=== PATIENT | male | born 1990 | race African-American/Black ===

== ENCOUNTER 2016-05-04 17:25 | Emergency (ER) | payer OTHER ==
[2016-05-04 17:29] VITALS: BP 139/63; BMI 29.9
--- NOTE | 2016-05-04 17:56 | PDOC ---
History of Present Illness - General Chief Complaint: Cold Symptoms Stated Complaint: COUGH/FEVER/CHEST TIGHTNESS Time Seen by Provider: 05/04/16 17:47 History Source: Patient Exam Limitations: No Limitations - History of Present Illness Initial Comments: CHIEF COMPLAINT: 25 y/o febrile tachycardic male with no significant PMH c/o flu like symptoms. HISTORY OF PRESENT ILLNESS: The patient states very suddenly last night he began feeling feverish, with body aches, dry cough and runny nose. He states today his chest hurts when he coughs. He denies CARMICHAEL, neck pain, n/v/d, sore throat, earache, SOB, abd pain, back pain. He has taken cough medicine for his symptoms. Vital signs on arrival are notable for pulse of 115 secondary to temp of 100.4. REVIEW OF SYSTEMS: GENERAL/CONSTITUTIONAL: + fever/chills. No weakness. No weight change. +body aches. HEAD, EYES, EARS, NOSE AND THROAT: No change in vision. No ear pain or discharge. No sore throat. +runny nose CARDIOVASCULAR: +chest pain. No shortness of breath. RESPIRATORY: +dry cough. No wheezing, or hemoptysis. GASTROINTESTINAL: No abd pain, nausea, vomiting, diarrhea. GENITOURINARY: No dysuria, frequency, or change in urination. MUSCULOSKELETAL: No joint or muscle swelling or pain. No neck or back pain. SKIN: No rash or easy bruising. NEUROLOGIC: No headache, vertigo, loss of consciousness, or loss of sensation. PHYSICAL EXAM: GENERAL: The patient is awake, alert, and fully oriented, in no acute distress. He is well appearing and ambulatory. HEAD: Normal with no signs of trauma. ENT: Pupils equal, round and reactive to light, extraocular movements intact, sclera anicteric, conjunctiva clear. Neck supple. LUNGS: Clear to auscultation bilaterally. Normal excursion. No respiratory distress or use of accessory muscles. CHEST WALL: Reproducible chest pain with palpation of anterior chest wall. CV: rapid rate regular rhythm, S1/S2, no MRG. Cap refill < 2 sec. ABDOMEN: Soft, non-distended, non-tender even to deep palpation, no hepatomegaly or splenomegaly, no masses. EXTREMITIES: Normal range of motion, no edema. NEUROLOGICAL: Normal speech, normal gait. CN II-XII grossly intact. PSYCH: Normal mood, normal affect. SKIN: Warm, dry, normal turgor, no rashes or lesions noted. Past History - Past Medical History Allergies/Adverse Reactions: Allergies Allergy/AdvReac Type Severity Reaction Status Date / Time No Known Allergies Allergy Verified 05/04/16 17:29 Other medical history: NONE - Psycho/Social/Smoking Cessation Hx Suicidal Ideation: No Smoking History: Current every day smoker Number of Cigarettes Smoked Daily: 6 Information on smoking cessation initiated: No Hx Alcohol Use: No Drug/Substance Use Hx: No Substance Use Type: None *Physical Exam - Vital Signs Last Vital Signs Temp Pulse Resp BP Pulse Ox 100.4 F H 115 H 20 139/63 95 05/04/16 17:26 05/04/16 17:26 05/04/16 17:26 05/04/16 17:26 05/04/16 17:26 Medical Decision Making - Medical Decision Making A/P: 25 y/o febrile male with influenza vs viral URI. Plan is as follows: 1. Influenza 2. PO tylenol 3. IM toradol 4. PO fluids Influenza - negative The patient is no longer febrile or tachycardic. His O2 sat is still 95 % on RA. Ordered Duoneb and CXR After patient had chest xray he eloped from the ER. *DC/Admit/Observation/Transfer Diagnosis at time of Disposition: Viral URI with cough - Discharge Dispostion Disposition: ELOPED Condition at time of disposition: Improved - Patient Instructions Printed Discharge Instructions: DI for Viral Upper Respiratory Infection -- Adult Additional Instructions: Discharge Instructions: -Take 650mg of Tylenol every 4 hours for fever -Take 600mg of Motrin every 6 hours for body aches. -Continue taking cough medicine for cough -Drink plenty of fluids and get plenty of rest -Follow up with your doctor next week -Return to the ER with any worsening or concerning symptoms
[2016-05-04] MEDS ORDERED: ACETAMINOPHEN 325 MG TABLET (FP) PO ONE (17:57)
[2016-05-04] MEDS ORDERED: KETOROLAC TROMETHAMINE 60 MG/2 ML VIAL IM ONE (17:57)
[2016-05-04] MEDS ORDERED: ACETAMINOPHEN 325 MG TABLET (FP) ONE (18:09)
[2016-05-04] MEDS ORDERED: KETOROLAC TROMETHAMINE 60 MG/2 ML VIAL ONE (18:09)
[2016-05-04] MEDS ORDERED: ALBUTEROL SO4 2.5/IPRATROPIUM 0.5 INH SOL 3 ML VIAL.NEB. NEB ONE (19:07)
[2016-05-04 20:30] VITALS: PULSE 90; TEMP 98.7
== END 2016-05-04 20:45 | disposition left against medical advice (07) ==
LOC: JERFT 17:25
DX: J06.9 Acute upper respiratory infection, unspecified (principal); B97.89 Other viral agents as the cause of diseases classified elsewhere
CPT/HCPCS: 71020-TC; 87804; 99281-25

== ENCOUNTER 2016-05-06 13:47 | Emergency (ER) | payer OTHER ==
[2016-05-06 14:10] VITALS: BP 123/71; PULSE 80; TEMP 97.8; BMI 30.7
--- NOTE | 2016-05-06 14:20 | PDOC ---
History of Present Illness - General Chief Complaint: Respiratory Stated Complaint: COUGH Time Seen by Provider: 05/06/16 14:19 History Source: Patient Exam Limitations: No Limitations - History of Present Illness Initial Comments: 05/06/16 14:20 CHIEF COMPLAINT: 25 y/o afebrile male with no significant PMH c/o continued cough. HISTORY OF PRESENT ILLNESS: The patient was seen here 2 days ago and eloped prior to completion of treatment. The patient states very suddenly 3 nights ago he began feeling feverish, with body aches, dry cough and runny nose. All of those symptoms have resolved but he states the cough is still present and he feels "warm" every once in a while. He denies CARMICHAEL, neck pain, n/v/d, sore throat , earache, SOB, abd pain, back pain. He stopped taking cough medicine for his symptoms. Vital signs on arrival are within normal limits. REVIEW OF SYSTEMS: GENERAL/CONSTITUTIONAL: tactile fever. No weakness. No weight change. No body aches HEAD, EYES, EARS, NOSE AND THROAT: No change in vision. No ear pain or discharge. No sore throat. +runny nose CARDIOVASCULAR: No chest pain. No shortness of breath. RESPIRATORY: +dry cough. No wheezing, or hemoptysis. GASTROINTESTINAL: No abd pain, nausea, vomiting, diarrhea. GENITOURINARY: No dysuria, frequency, or change in urination. MUSCULOSKELETAL: No joint or muscle swelling or pain. No neck or back pain. SKIN: No rash or easy bruising. NEUROLOGIC: No headache, vertigo, loss of consciousness, or loss of sensation. PHYSICAL EXAM: GENERAL: The patient is awake, alert, and fully oriented, in no acute distress. He is well appearing and ambulatory. HEAD: Normal with no signs of trauma. ENT: Pupils equal, round and reactive to light, extraocular movements intact, sclera anicteric, conjunctiva clear. Neck supple. LUNGS: Clear to auscultation bilaterally. Normal excursion. No respiratory distress or use of accessory muscles. CHEST WALL: Reproducible chest pain with palpation of anterior chest wall. CV: rapid rate regular rhythm, S1/S2, no MRG. Cap refill < 2 sec. ABDOMEN: Soft, non-distended, non-tender even to deep palpation, no hepatomegaly or splenomegaly, no masses. EXTREMITIES: Normal range of motion, no edema. NEUROLOGICAL: Normal speech, normal gait. CN II-XII grossly intact. PSYCH: Normal mood, normal affect. SKIN: Warm, dry, normal turgor, no rashes or lesions noted. Past History - Past Medical History Allergies/Adverse Reactions: Allergies Allergy/AdvReac Type Severity Reaction Status Date / Time No Known Allergies Allergy Verified 05/06/16 14:04 Other medical history: denies - Immunization History Immunization Up to Date: Yes - Psycho/Social/Smoking Cessation Hx Suicidal Ideation: No Smoking History: Current every day smoker Number of Cigarettes Smoked Daily: 6 Information on smoking cessation initiated: No Hx Alcohol Use: No Drug/Substance Use Hx: No Substance Use Type: None *Physical Exam - Vital Signs Last Vital Signs Temp Pulse Resp BP Pulse Ox 97.8 F 80 20 123/71 100 05/06/16 14:04 05/06/16 14:04 05/06/16 14:04 05/06/16 14:04 05/06/16 14:04 Medical Decision Making - Medical Decision Making A/P: 25 y/o afebrile male mostly at the tail end of a viral URI with cough. He was seen here 2 days ago and eloped prior to completion of treatment. At that time his CXR was negative and his influenza was negative. The patient is c /o continued cough. Physical exam is unremarkable. Suggested the patient take 600mg of motrin every 6 hours for pain/fever, use otc cough medicine for cough, drink plenty of fluids, use cough drops, sit up to sleep and get plenty of rest. Instructed the patient to return to the ER with any worsening or concerning symptoms. The patient verbalizes understanding of all instructions, has no further questions and is awaiting discharge. *DC/Admit/Observation/Transfer Diagnosis at time of Disposition: Viral URI with cough - Discharge Dispostion Disposition: HOME Condition at time of disposition: Good - Patient Instructions Printed Discharge Instructions: DI for Viral Upper Respiratory Infection -- Adult Additional Instructions: Discharge Instructions: -Take over the counter cough medicine for cough -Take Motrin every 6 hours for pain/fever -Use cough drops and gargle with warm salt water -Sit up to sleep -Return to the ER with any worsening or concerning symptoms
== END 2016-05-06 14:30 | disposition home or self-care (01) ==
LOC: JERFT 13:47
DX: J06.9 Acute upper respiratory infection, unspecified (principal); B97.89 Other viral agents as the cause of diseases classified elsewhere
CPT/HCPCS: 99281-25

== ENCOUNTER 2017-04-09 01:06 | Emergency (ER) | payer OTHER ==
[2017-04-09 02:56] VITALS: BP 131/74; PULSE 56; TEMP 97.7; BMI 31.5
--- NOTE | 2017-04-09 04:08 | PDOC ---
History of Present Illness - General Chief Complaint: Back Pain Stated Complaint: BACK/SHOULDER INJURY Time Seen by Provider: 04/09/17 03:28 - History of Present Illness Initial Comments: 04/09/17 04:03 CHIEF COMPLAINT: work injury HISTORY OF PRESENT ILLNESS: 26 yo M with no PMH presents to ED s/p injury at work. 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 Patient states that he did have some pain to his lower back and left shoulder earlier but it has resolved; per his employer protocol he had to come "get checked out." Patient denies any decreased ROM to any extremities and denies any pain now. Patient denies trauma to any other part of his body, denies LOC. PAST MEDICAL HISTORY: Denies past medical history FAMILY HISTORY: Denies SOCIAL HISTORY: Denies tobacco, alcohol, illicit drug use. SURGICAL HISTORY: Denies ALLERGIES: No known drug allergies REVIEW OF SYSTEMS as per HPI PHYSICAL EXAM General Appearance: Well-appearing, appropriately dressed. No apparent distress. HEENT: EOMI, PERRLA. No conjunctival pallor. No photophobia, scleral icterus. Neck: Supple. Trachea midline. No tenderness. Respiratory/Chest: Lungs CTAB. Cardiovascular: RRR. S1, S2. Gastrointestinal/Abdominal: Normal bowel sounds. Abdomen soft, non-distended. No tenderness or rebound tenderness. No organomegaly, pulsatile mass, guarding , hernia, hepatomegaly, splenomegaly. Musculoskeletal/Extremities: Normal inspection. FROM of all extremities, normal capillary refill. Pelvis Stable. No CVA tenderness. No tenderness to extremities, pedal edema, swelling, erythema or deformity. Integumentary: Appropriate color, dry, warm. No cyanosis, erythema, jaundice or rash Neurologic: paint stockman II-XII intact. Fully oriented, alert. Appropriate mood/affect. Motor strength 5/5. No appreciable EOM palsy, facial droop or sensory deficit. Past History - Past Medical History Allergies/Adverse Reactions: Allergies Allergy/AdvReac Type Severity Reaction Status Date / Time No Known Allergies Allergy Verified 04/09/17 02:46 Home Medications: Ambulatory Orders Naproxen [Naprosyn -] 250 mg PO BID PRN #14 tablet 04/09/17 - Immunization History Immunization Up to Date: Yes - Suicide/Smoking/Psychosocial Hx Smoking History: Current every day smoker Number of Cigarettes Smoked Daily: 20 Information on smoking cessation initiated: No Hx Alcohol Use: No Drug/Substance Use Hx: No Substance Use Type: None *Physical Exam - Vital Signs Last Vital Signs Temp Pulse Resp BP Pulse Ox 97.7 F 56 L 14 131/74 100 04/09/17 02:46 04/09/17 02:46 04/09/17 02:46 04/09/17 02:46 04/09/17 02:46 Medical Decision Making - Medical Decision Making 04/09/17 04:10 26 yo M with no PMH presents to ED s/p injury at work. Exam grossly unremarkable. NSAIDs for possible sequela of injury. Advised patient to take medication as prescribed. Advised patient of signs and symptoms for return to ED. Patient verbalized understanding and agrees to plan. *DC/Admit/Observation/Transfer Diagnosis at time of Disposition: Back pain Qualifiers: Back pain location: low back pain Chronicity: acute Back pain laterality: unspecified Sciatica presence: without sciatica Qualified Code(s): M54.5 - Low back pain - Discharge Dispostion Disposition: HOME Condition at time of disposition: Stable Admit: No - Prescriptions Prescriptions: Naproxen [Naprosyn -] 250 mg PO BID PRN #14 tablet PRN Reason: Pain - Referrals Referrals: Mattie Moore MD [Primary Care Provider] - - Patient Instructions Printed Discharge Instructions: DI for Low Back Pain, DI for Shoulder Pain Additional Instructions: Please take medication as prescribed. If your symptoms do not improve in 5-7 days, please follow up with an orthopedics for further evaluation. If you experience any loss of sensation to your extremities, any loss of bowel or bladder function, any swelling or increased pain to your leg, please return to the ER. - Post Discharge Activity Forms/Work/School Notes: Back to Work
--- NOTE | 2017-04-09 04:24 | PDOC ---
*Physical Exam - Vital Signs Last Vital Signs Temp Pulse Resp BP Pulse Ox 97.7 F 56 L 14 131/74 100 04/09/17 02:46 04/09/17 02:46 04/09/17 02:46 04/09/17 02:46 04/09/17 02:46 Medical Decision Making - Medical Decision Making 04/09/17 04:23 agree with care from ROXANE Cerda *DC/Admit/Observation/Transfer Diagnosis at time of Disposition: Back pain Qualifiers: Back pain location: low back pain Chronicity: acute Back pain laterality: unspecified Sciatica presence: without sciatica Qualified Code(s): M54.5 - Low back pain - Discharge Dispostion Disposition: HOME Condition at time of disposition: Stable - Prescriptions Prescriptions: Naproxen [Naprosyn -] 250 mg PO BID PRN #14 tablet PRN Reason: Pain - Referrals Referrals: Mattie Moore MD [Primary Care Provider] - - Patient Instructions Printed Discharge Instructions: DI for Low Back Pain, DI for Shoulder Pain Additional Instructions: Please take medication as prescribed. If your symptoms do not improve in 5-7 days, please follow up with an orthopedics for further evaluation. If you experience any loss of sensation to your extremities, any loss of bowel or bladder function, any swelling or increased pain to your leg, please return to the ER. - Post Discharge Activity Forms/Work/School Notes: Back to Work
== END 2017-04-09 04:44 | disposition home or self-care (01) ==
LOC: JER 01:06
DX: M54.5 Low back pain (principal); W20.8XXA Other cause of strike by thrown, projected or falling object, initial encounter; Y93.89 Activity, other specified; Y92.89 Other specified places as the place of occurrence of the external cause; Y99.0 Civilian activity done for income or pay
CPT/HCPCS: 99281-25

== ENCOUNTER 2017-05-26 17:45 | Emergency (ER) | payer OTHER ==
[2017-05-26 18:18] VITALS: BP 127/78; PULSE 103; TEMP 100.5; BMI 30.7
[2017-05-26] MEDS ORDERED: IBUPROFEN 400 MG TABLET (FP) PO ONE (18:18)
--- NOTE | 2017-05-26 18:19 | PDOC ---
Rapid Medical Evaluation Time Seen by Provider: 05/26/17 18:14 Medical Evaluation: Allergies Allergy/AdvReac Type Severity Reaction Status Date / Time No Known Allergies Allergy Verified 05/26/17 18:14 02 18:14 The patient presents with a chief complaint of: Sore throat, feeling hot for two days. I have performed a brief in-person evaluation of this patient; Pertinent physical exam findings: ambulatory, in no respiratory distress: posterior pharyngeal erythema, cervical LAD b/l. Fever of 100.1 I have ordered the following: rapid strep, motrin The patient will proceed to the ED for further evaluation.
--- NOTE | 2017-05-26 19:14 | PDOC ---
History of Present Illness - General Chief Complaint: Cold Symptoms Stated Complaint: PAIN Time Seen by Provider: 05/26/17 18:14 History Source: Patient Exam Limitations: No Limitations - History of Present Illness Initial Comments: 05/26/17 19:12 27-year-old male with no medical history presents to the emergency department complaining of a sore throat 4 days with subjective fever and chills but denies headache, dizziness, lightheadedness, facial pains, nasal congestion, rhinorrhea, earaches, neck pain/stiffness, back pains, chest pain, shortness of breath, flank pain, abdominal pains. Pt also states he has clogged ears. Timing/Duration: reports: other (x3d) Associated Symptoms: reports: fever/chills (subjective), sore throat Past History - Past Medical History Allergies/Adverse Reactions: Allergies Allergy/AdvReac Type Severity Reaction Status Date / Time No Known Allergies Allergy Verified 05/26/17 18:14 Home Medications: Ambulatory Orders NK [No Known Home Medication] 05/26/17 COPD: No DVT: No - Immunization History Immunization Up to Date: Yes - Suicide/Smoking/Psychosocial Hx Smoking History: Never smoked Have you smoked in the past 12 months: No Number of Cigarettes Smoked Daily: 6 Information on smoking cessation initiated: Yes 'Breaking Loose' booklet given: 05/26/17 Hx Alcohol Use: No Drug/Substance Use Hx: No Substance Use Type: None Review of Systems - Review of Systems Able to Perform ROS?: Yes Comments:: 05/26/17 19:12 CONSTITUTIONAL: +fever/chills Absent: diaphoresis, generalized weakness, malaise, loss of appetite HEENT: +throat pain, +clogged ears Absent: rhinorrhea, nasal congestion, throat swelling, difficulty swallowing, mouth swelling, ear pain, eye pain, visual Changes CARDIOVASCULAR: Absent: chest pain, loss of consciousness, palpitations, irregular heart rate, peripheral edema RESPIRATORY: Absent: cough, shortness of breath, dyspnea with exertion, orthopnea, wheezing, stridor, hemoptysis GASTROINTESTINAL: Absent: abdominal pain, abdominal distension, nausea, vomiting, diarrhea, constipation, melena, hematochezia GENITOURINARY: Absent: dysuria, frequency, urgency, hesitancy, hematuria, flank pain, genital pain MUSCULOSKELETAL: Absent: myalgia, arthralgia, joint swelling SKIN: Absent: rash, itching, pallor Is the patient limited Cook Islander proficient: No *Physical Exam - Vital Signs Last Vital Signs Temp Pulse Resp BP Pulse Ox 100.5 F H 103 H 18 127/78 100 05/26/17 18:14 05/26/17 18:14 05/26/17 18:14 05/26/17 18:14 05/26/17 18:14 - Physical Exam Comments: 05/26/17 19:13 GENERAL: +fever/chills Well developed, well nourished. Awake and alert. No acute distress. HEENT: +Sore throat, +B/L cerumen impaction Normocephalic, atraumatic. PERRLA, EOMI. No conjunctival pallor. Sclera are non- icteric. Moist mucous membranes. Oropharynx is clear. NECK: Supple. Full ROM. No JVD. Carotid pulses 2+ and symmetric, without bruits. No thyromegaly. No lymphadenopathy. CARDIOVASCULAR: Regular rate and rhythm. No murmurs, rubs, or gallops. Distal pulses are 2+ and symmetric. PULMONARY: No evidence of respiratory distress. Lungs clear to auscultation bilaterally. No wheezing, rales or rhonchi. ABDOMINAL: Soft. Non-tender. Non-distended. No rebound or guarding. No organomegaly. Normoactive bowel sounds. SKIN: Warm and dry. Normal capillary refill. No rashes. No jaundice. Procedure: B/L ears cerumen removed with currette B/L TM visualized, wnl canal; neg erythema ED Treatment Course - Medications Given in the ED: ED Medications Discontinued Medications Generic Name Dose Route Start Last Admin Trade Name Humphreyq PRN Reason Stop Dose Admin Ibuprofen 800 mg 05/26/17 18:18 05/26/17 18:31 Motrin - PO 05/26/17 18:19 800 mg ONCE ONE Administration *DC/Admit/Observation/Transfer Diagnosis at time of Disposition: Viral pharyngitis, Impacted cerumen, bilateral - Discharge Dispostion Disposition: HOME Condition at time of disposition: Stable Admit: No - Referrals Referrals: Atul Hall MD [Primary Care Provider] - - Patient Instructions Printed Discharge Instructions: DI for Viral Pharyngitis, DI for Cerumen Impaction Additional Instructions: Follow up with your physician within 48 hours Gargle with salt water Take tylenol or motrin as needed for pain Return to the ER for severe/persistent/worsening symptoms - Post Discharge Activity
== END 2017-05-26 21:36 | disposition home or self-care (01) ==
LOC: JERFT 17:45
PROC: 09C47ZZ Extirpation of Matter from Left External Auditory Canal, Via Natural or Artificial Opening (ICD-10-PCS; principal; 2017-05-26)
PROC: 09C37ZZ Extirpation of Matter from Right External Auditory Canal, Via Natural or Artificial Opening (ICD-10-PCS; 2017-05-26)
DX: J02.9 Acute pharyngitis, unspecified (principal); B97.89 Other viral agents as the cause of diseases classified elsewhere; H61.23 Impacted cerumen, bilateral
CPT/HCPCS: 69210; 87070; 87430; 99281-25

== ENCOUNTER 2018-06-01 20:31 | Emergency (ER) | payer OTHER ==
[2018-06-01] MEDS ORDERED: IBUPROFEN 400 MG TABLET (FP) PO ONE ×2 (20:47→21:27)
--- NOTE | 2018-06-01 20:47 | PDOC ---
Rapid Medical Evaluation Medical Evaluation: Allergies Allergy/AdvReac Type Severity Reaction Status Date / Time No Known Allergies Allergy Verified 05/26/17 18:14 I have performed a brief in-person evaluation of this patient. The patient presents with a chief complaint of: C/O L posterior rib pain worse on raising L arm up that started today while at work; has slight pain on inspiration as well; denies trauma, heavy lifting Pertinent physical exam findings: +reproducible cp I have ordered the following: CXR, Motrin The patient will proceed to the ED for further evaluation. 06/01/18 20:45
[2018-06-01 20:48] VITALS: BP 145/64; PULSE 67; TEMP 98.3; BMI 31.1
--- NOTE | 2018-06-01 21:39 | PDOC ---
History of Present Illness - General Chief Complaint: Chest Pain Stated Complaint: CHEST PAIN Time Seen by Provider: 06/01/18 20:45 - History of Present Illness Initial Comments: 06/01/18 21:36 28-year-old male presented for evaluation of left-sided rib pain. He points to the area of the latissimus dorsi as the area of his discomfort. No systemic symptoms no comorbidities Past History - Past Medical History Allergies/Adverse Reactions: Allergies Allergy/AdvReac Type Severity Reaction Status Date / Time No Known Allergies Allergy Verified 06/01/18 20:46 Home Medications: Ambulatory Orders Cyclobenzaprine HCl [Flexeril 10 mg] 10 mg PO HS PRN #10 tablet 06/01/18 Ibuprofen [Motrin -] 600 mg PO TID #30 tablet 06/01/18 COPD: No DVT: No - Immunization History Immunization Up to Date: Yes - Suicide/Smoking/Psychosocial Hx Smoking History: Current every day smoker Have you smoked in the past 12 months: No Number of Cigarettes Smoked Daily: 6 Information on smoking cessation initiated: No 'Breaking Loose' booklet given: 05/26/17 Hx Alcohol Use: No Drug/Substance Use Hx: No Substance Use Type: None Review of Systems - Review of Systems Musculoskeletal: Yes: Muscle Pain *Physical Exam - Vital Signs Last Vital Signs Temp Pulse Resp BP Pulse Ox 98.3 F 67 18 145/64 100 06/01/18 20:46 06/01/18 20:46 06/01/18 20:46 06/01/18 20:46 06/01/18 20:46 - Physical Exam Comments: 06/01/18 21:37 HEAD: NC/AT EYES: Conjuntiva clear Ears: Canals and TM's normal NOSE: No d/c THROAT: Moist mucous membrances, oral pharanx clear, uvula midline NECK: Supple without adenopathy CARDIAC: S1 S2 LUNGS: CTA Full and Equal breath sounds ABDOMEN: Soft NT ND MS: Full ROM in all joints without edema NEUROLOGIC: No gross sensory or motor deficits, NVID SKIN: Normal color and temperature no lesions or rashes There is no rib tenderness. Tenderness is about the left latissimus dorsi exacerbated with resisted on adduction Moderate Sedation - Procedure Monitoring Vital Signs: Procedure Monitoring Vital Signs Temperature 98.3 F 06/01/18 20:46 Pulse Rate 67 06/01/18 20:46 Respiratory Rate 18 06/01/18 20:46 Blood Pressure 145/64 06/01/18 20:46 O2 Sat by Pulse Oximetry (%) 100 06/01/18 20:46 ED Treatment Course - Medications Given in the ED: ED Medications Discontinued Medications Generic Name Dose Route Start Last Admin Trade Name Freq PRN Reason Stop Dose Admin Ibuprofen 800 mg 06/01/18 20:47 06/01/18 21:28 Motrin - PO 06/01/18 20:48 800 mg ONCE ONE Administration *DC/Admit/Observation/Transfer Diagnosis at time of Disposition: Muscle strain - Discharge Dispostion Disposition: HOME Condition at time of disposition: Stable Decision to Admit order: No - Prescriptions Prescriptions: Cyclobenzaprine HCl [Flexeril 10 mg] 10 mg PO HS PRN #10 tablet PRN Reason: Muscle Spasms Ibuprofen [Motrin -] 600 mg PO TID #30 tablet - Referrals Referrals: Mike Vaughan DO [Staff Physician] - - Patient Instructions Printed Discharge Instructions: Muscle Strain Additional Instructions: Please take the anti-inflammatories as directed its one tablet 3 times a day with food discontinue the medication if it bothers her stomach. The muscle relaxers one tablet at night will make you sleepy. Return to the emergency room should symptoms worsen or go unresolved and follow-up with orthopedic surgery in 1-2 days for further evaluation and treatment options. - Post Discharge Activity Forms/Work/School Notes: Back to Work
== END 2018-06-01 21:39 | disposition home or self-care (01) ==
LOC: JERFT 20:31
DX: S29.012A Strain of muscle and tendon of back wall of thorax, initial encounter (principal); X58.XXXA Exposure to other specified factors, initial encounter; Y93.89 Activity, other specified; Y92.89 Other specified places as the place of occurrence of the external cause; Y99.9 Unspecified external cause status; F17.210 Nicotine dependence, cigarettes, uncomplicated
CPT/HCPCS: 71046-TC-FY; 99281-25

== ENCOUNTER 2018-08-12 18:56 | Emergency (ER) | payer OTHER ==
[2018-08-12 19:01] VITALS: BP 139/67; PULSE 104; TEMP 102.1; BMI 30.7
[2018-08-12] MEDS ORDERED: ACETAMINOPHEN 500 MG TABLET (FP) PO ONE (20:31)
[2018-08-12] MEDS ORDERED: ACETAMINOPHEN 500 MG TABLET (FP) ONE (20:34)
--- NOTE | 2018-08-12 20:36 | PDOC ---
History of Present Illness - General Chief Complaint: Cold Symptoms Stated Complaint: COLD SYMPTOMS HEADACHE Time Seen by Provider: 08/12/18 20:26 - History of Present Illness Initial Comments: 08/12/18 20:33 28-year-old male without comorbidities presents for flulike symptoms and fever 3 days Past History - Past Medical History Allergies/Adverse Reactions: Allergies Allergy/AdvReac Type Severity Reaction Status Date / Time No Known Allergies Allergy Verified 08/12/18 19:01 Home Medications: Ambulatory Orders Acetaminophen [Tylenol -] 1,000 mg PO Q8H #100 tablet 08/12/18 Ibuprofen [Motrin -] 600 mg PO TID #30 tablet 08/12/18 COPD: No DVT: No - Immunization History Immunization Up to Date: Yes - Suicide/Smoking/Psychosocial Hx Smoking History: Never smoked Have you smoked in the past 12 months: No Number of Cigarettes Smoked Daily: 6 'Breaking Loose' booklet given: 05/26/17 Hx Alcohol Use: No Drug/Substance Use Hx: No Substance Use Type: None Review of Systems - Review of Systems Constitutional: Yes: See HPI, Chills, Fever, Malaise, Night Sweats HEENTM: Yes: Nose Congestion Respiratory: Yes: Cough *Physical Exam - Vital Signs Last Vital Signs Temp Pulse Resp BP Pulse Ox 102.1 F H 104 H 18 139/67 97 08/12/18 18:59 08/12/18 18:59 08/12/18 18:59 08/12/18 18:59 08/12/18 18:59 - Physical Exam Comments: 08/12/18 20:33 HEAD: NC/AT EYES: Conjuntiva clear Ears: Canals and TM's normal NOSE: No d/c THROAT: Moist mucous membrances, oral pharanx clear, uvula midline NECK: Supple without adenopathy CARDIAC: S1 S2 LUNGS: CTA Full and Equal breath sounds ABDOMEN: Soft NT ND MS: Full ROM in all joints without edema NEUROLOGIC: No gross sensory or motor deficits, NVID SKIN: Normal color and temperature no lesions or rashes Medical Decision Making - Medical Decision Making 08/12/18 20:33 Discussed use of Tamiflu, patient is out of the window for this treatment. Discussed use of Tylenol and Motrin prescriptions that the pharmacy. Follow-up with internal medicine one to 2 days for further evaluation and treatment options. *DC/Admit/Observation/Transfer Diagnosis at time of Disposition: Viral URI with cough - Discharge Dispostion Disposition: HOME Condition at time of disposition: Stable Decision to Admit order: No - Prescriptions Prescriptions: Acetaminophen [Tylenol -] 1,000 mg PO Q8H #100 tablet Ibuprofen [Motrin -] 600 mg PO TID #30 tablet - Referrals Referrals: Lilli Olsen MD [Staff Physician] - - Patient Instructions Printed Discharge Instructions: DI for Viral Upper Respiratory Infection -- Adult Additional Instructions: Tylenol and Motrin as directed for pain and fever. Return to the emergency room for worsening symptoms. Follow-up with internal medicine in one to 2 days. Only take Tylenol and Motrin do not take any other [id number] cold remedies her medicines. If you do some of them contain Tylenol and will be overdosing on Tylenol. Only take the Tylenol that was prescribed the weight is written. - Post Discharge Activity Forms/Work/School Notes: Back to Work
== END 2018-08-12 20:55 | disposition home or self-care (01) ==
LOC: JERFT 18:56
DX: J06.9 Acute upper respiratory infection, unspecified (principal); B97.89 Other viral agents as the cause of diseases classified elsewhere
CPT/HCPCS: 99281-25

== ENCOUNTER 2020-06-03 22:33 | Emergency (ER) | payer OTHER ==
[2020-06-03 22:49] VITALS: TEMP 98.2; BMI 29.9
[2020-06-03] MEDS ORDERED: ACETAMINOPHEN 1000 MG/100 ML VIAL (NON FORMULARY) IVPB ONE (23:52)
[2020-06-03] MEDS ORDERED: ONDANSETRON 4 MG/2 ML VIAL IVPUSH ONE (23:52)
[2020-06-03] MEDS ORDERED: SODIUM CHLORIDE 0.9% 500 ML INFUS.BAG IV ONE (23:52)
[2020-06-03] MEDS ORDERED: ACETAMINOPHEN INJECTION 100 ML IVPB ONE (23:56)
[2020-06-03] MEDS ORDERED: ONDANSETRON 4 MG/2 ML VIAL ONE (23:57)
[2020-06-04 00:41] LABS: BASO % 0.4 % (0-2.0); EOS % 0.1 % (0-4.5); HEMATOCRIT 48.2 % (35.4-49); HEMOGLOBIN 16.3 GM/dL (11.7-16.9); LYMPH % 10.1 % (8-40); MCH 32.9 pg (25.7-33.7); MCHC 33.8 g/dl (32.0-35.9); MEAN CELL VOLUME 97.4 fl (80-96); MEAN PLT VOLUME 8.1 fl (7.5-11.1); MONO % 13.2 % (3.8-10.2); NEUT % 76.2 % (42.8-82.8); PLATELET COUNT 250 K/MM3 (134-434); RBC 4.95 M/mm3 (4.00-5.60); RDW 13.6 % (11.9-15.9); WHITE BLOOD COUNT 11.7 K/mm3 (4.0-10.0)
[2020-06-04 00:56] LABS: INR 1.05 (0.83-1.09); PROTHROMBIN TIME (PATIENT) 12.7 SEC (9.7-13.0)
[2020-06-04 00:58] LABS: ACTIVATED PTT 30.3 SECONDS (25.2-36.5)
[2020-06-04 01:02] LABS: POTASSIUM 3.7 mmol/L (3.5-5.1)
[2020-06-04 01:04] LABS: ALBUMIN 3.7 g/dl (3.4-5.0); BLOOD UREA NITROGEN 8.1 mg/dL (7-18); CALCIUM 8.8 mg/dL (8.5-10.1)
[2020-06-04 01:09] LABS: BILIRUBIN,TOTAL 2.2 mg/dL (0.2-1); TOT PROT 7.5 g/dl (6.4-8.2)
[2020-06-04] MEDS ORDERED: SODIUM CHLORIDE 0.9% 500 ML INFUS.BAG IV ONE (01:16)
[2020-06-04] MEDS ORDERED: AMOX TR/POT CLAV 875MG/125MG TABLETS (FP) PO ONE (03:16)
[2020-06-04 03:33] VITALS: BP 136/78; PULSE 78
== END 2020-06-04 03:33 | disposition home or self-care (01) ==
LOC: JER 22:33
PROC: 3E0333Z Introduction of Anti-inflammatory into Peripheral Vein, Percutaneous Approach (ICD-10-PCS; principal; 2020-06-03)
PROC: 3E033GC Introduction of Other Therapeutic Substance into Peripheral Vein, Percutaneous Approach (ICD-10-PCS; 2020-06-03)
DX: K52.831 Collagenous colitis (principal)
CPT/HCPCS: 36415; 71046-TC-FY; 74177-TC; 80053; 85025; 85610; 85730; 93005; 93010; 99285-25; J0131; Q9967

== ENCOUNTER 2020-06-09 18:43 | Emergency (ER) | payer OTHER ==
[2020-06-09 18:46] VITALS: BP 130/77; PULSE 88; TEMP 98.1; BMI 29.9
[2020-06-09] MEDS ORDERED: FAMOTIDINE 20 MG/50 ML IVPB 20 MG/50 ML MG IVPB ONE ×2 (19:39→20:02)
[2020-06-09] MEDS ORDERED: LACTATED RINGERS SOLUTION 1,000 ML IV STA (19:39)
[2020-06-09] MEDS ORDERED: MAG HYDROX/AL HYDROX/SIMETH 30 ML UNIT-DOSE CUP PO ONE (19:39)
[2020-06-09] MEDS ORDERED: ACETAMINOPHEN 1000 MG/100 ML VIAL (NON FORMULARY) IVPB ONE (19:40)
[2020-06-09 20:02] LABS: BASO % 0.9 % (0-2.0); HEMATOCRIT 46.5 % (35.4-49); HEMOGLOBIN 15.8 GM/dL (11.7-16.9); LYMPH % 17.4 % (8-40); MCHC 34.1 g/dl (32.0-35.9); MEAN CELL VOLUME 96.8 fl (80-96); MEAN PLT VOLUME 7.7 fl (7.5-11.1); MONO % 13.3 % (3.8-10.2); NEUT % 67.4 % (42.8-82.8); PLATELET COUNT 317 K/MM3 (134-434); RDW 13.3 % (11.9-15.9); WHITE BLOOD COUNT 12.2 K/mm3 (4.0-10.0)
[2020-06-09] MEDS ORDERED: ACETAMINOPHEN INJECTION 100 ML IVPB ONE (20:02)
[2020-06-09] MEDS ORDERED: MAGNESIUM HYDROX 2400MG/30ML ORAL SUSPENSION 30 ML CUP ONE (20:02)
[2020-06-09 20:23] LABS: POTASSIUM 3.8 mmol/L (3.5-5.1)
[2020-06-09 20:25] LABS: CALCIUM 8.8 mg/dL (8.5-10.1)
[2020-06-09 20:26] LABS: ALBUMIN 3.5 g/dl (3.4-5.0); BLOOD UREA NITROGEN 8.5 mg/dL (7-18)
[2020-06-09 20:28] LABS: CREATININE 1.1 mg/dL (0.55-1.3)
[2020-06-09 20:30] LABS: TOT PROT 7.6 g/dl (6.4-8.2)
[2020-06-09 20:36] LABS: BILIRUBIN,TOTAL 0.5 mg/dL (0.2-1)
[2020-06-09] MEDS ORDERED: metroNIDAZOLE 500 MG TABLET PO ONE (20:57)
[2020-06-09] MEDS ORDERED: metroNIDAZOLE 250 MG TABLET ONE (20:59)
== END 2020-06-09 21:08 | disposition home or self-care (01) ==
LOC: JER 18:43
PROC: 3E0333Z Introduction of Anti-inflammatory into Peripheral Vein, Percutaneous Approach (ICD-10-PCS; principal; 2020-06-09)
PROC: 3E033GC Introduction of Other Therapeutic Substance into Peripheral Vein, Percutaneous Approach (ICD-10-PCS; 2020-06-09)
DX: K51.919 Ulcerative colitis, unspecified with unspecified complications (principal)
CPT/HCPCS: 36415; 80053; 83605; 83690; 85025; 99284-25; J0131

== ENCOUNTER 2020-08-10 18:54 | Emergency (ER) | payer OTHER ==
[2020-08-10 19:05] VITALS: TEMP 97.6; BMI 29.9
[2020-08-10] MEDS ORDERED: ONDANSETRON 4 MG/2 ML VIAL IVPUSH ONE (19:31)
[2020-08-10] MEDS ORDERED: ACETAMINOPHEN 1000 MG/100 ML VIAL (NON FORMULARY) IVPB ONE (19:31)
[2020-08-10] MEDS ORDERED: SODIUM CHLORIDE 1,000 ML IV STA (19:31)
[2020-08-10] MEDS ORDERED: ONDANSETRON 4 MG/2 ML VIAL ONE (19:43)
[2020-08-10] MEDS ORDERED: ACETAMINOPHEN INJECTION 100 ML IVPB ONE (19:43)
[2020-08-10 20:18] LABS: BASO % 0.3 % (0-2.0); EOS % 0.3 % (0-4.5); HEMATOCRIT 47.6 % (35.4-49); HEMOGLOBIN 16.2 GM/dL (11.7-16.9); LYMPH % 14.1 % (8-40); MCH 33.1 pg (25.7-33.7); MEAN CELL VOLUME 97.3 fl (80-96); MEAN PLT VOLUME 7.9 fl (7.5-11.1); MONO % 14.3 % (3.8-10.2); PLATELET COUNT 238 K/MM3 (134-434); RBC 4.89 M/mm3 (4.00-5.60); RDW 13.8 % (11.9-15.9)
[2020-08-10 20:27] LABS: EPI CELLS 2 /uL (0-25.1); HYALINE CASTS 1 /uL (0-3.1); PH,URINE 5.5 (5.0-8.0); URINE APPEARANCE CLEAR; URINE BACTERIA 87 /uL (0-1359); URINE BILIRUBIN NEGATIVE (NEGATIVE); URINE COLOR YELLOW; URINE GLUCOSE (UA) NEGATIVE (NEGATIVE); URINE KETONE TRACE (NEGATIVE); URINE LEUK ESTERASE NEGATIVE (NEGATIVE); URINE NITRITE NEGATIVE (NEGATIVE); URINE PROTEIN 1+ (NEGATIVE); URINE RBC 70 /uL (0-23.9); URINE UROBILINOGEN 0.2 mg/dL (0.2-1.0); URINE WBC 3 /uL (0-25.8)
[2020-08-10 20:41] LABS: CALCIUM 8.8 mg/dL (8.5-10.1)
[2020-08-10 20:42] LABS: ALBUMIN 3.8 g/dl (3.4-5.0); BLOOD UREA NITROGEN 8.5 mg/dL (7-18)
[2020-08-10 20:46] LABS: BILIRUBIN,TOTAL 1.2 mg/dL (0.2-1); TOT PROT 7.5 g/dl (6.4-8.2)
[2020-08-10 23:38] VITALS: BP 122/75; PULSE 57
== END 2020-08-10 23:30 | disposition home or self-care (01) ==
LOC: JER 18:54
PROC: 3E033NZ Introduction of Analgesics, Hypnotics, Sedatives into Peripheral Vein, Percutaneous Approach (ICD-10-PCS; principal; 2020-08-10)
PROC: 3E033GC Introduction of Other Therapeutic Substance into Peripheral Vein, Percutaneous Approach (ICD-10-PCS; 2020-08-10)
PROC: 3E0337Z Introduction of Electrolytic and Water Balance Substance into Peripheral Vein, Percutaneous Approach (ICD-10-PCS; 2020-08-10)
DX: K52.9 Noninfective gastroenteritis and colitis, unspecified (principal)
CPT/HCPCS: 36415; 74177-TC; 80053; 81003; 83690; 85025; 99285-25; J0131; Q9967

== ENCOUNTER 2021-01-17 17:14 | Emergency (ER) | payer OTHER ==
[2021-01-17 17:23] VITALS: BP 145/81; PULSE 111; TEMP 98.6; BMI 27.1
[2021-01-17] MEDS ORDERED: ONDANSETRON *ODT* 4 MG TABLET SL ONE (18:07)
[2021-01-17] MEDS ORDERED: ACETAMINOPHEN 325 MG TABLET (FP) PO ONE (18:07)
[2021-01-17] MEDS ORDERED: DOCUSATE NA 100 MG/10 ML UNIT-DOSE CUPS PO ONE (18:07)
[2021-01-17] MEDS ORDERED: ONDANSETRON *ODT* 4 MG TABLET ONE (18:12)
[2021-01-17] MEDS ORDERED: ACETAMINOPHEN 325 MG TABLET (FP) ONE (19:33)
== END 2021-01-17 20:08 | disposition home or self-care (01) ==
LOC: JER 17:14
DX: H61.23 Impacted cerumen, bilateral (principal); R10.84 Generalized abdominal pain
CPT/HCPCS: 99283-25; Q0162

== ENCOUNTER 2021-02-24 08:50 | Emergency (ER) | payer OTHER ==
[2021-02-24 08:54] VITALS: BP 131/83; PULSE 85; TEMP 97.9; BMI 27.8
== END 2021-02-24 09:55 | disposition home or self-care (01) ==
LOC: JER 08:50 → JERFT 08:50
DX: S30.812A Abrasion of penis, initial encounter (principal)
CPT/HCPCS: 36415; 86780; 87491; 87529; 87591; 99283-25

== ENCOUNTER 2022-09-16 18:09 | Emergency (ER) | payer OTHER ==
[2022-09-16 18:19] VITALS: BP 142/79; PULSE 104; RESP 20; TEMP 98.8; BMI 31.2
[2022-09-16] MEDS ORDERED: BACITRACIN ZINC 15 GM TUBE TOPICAL OINTMENT TP ONE (19:51)
[2022-09-16] MEDS ORDERED: BACITRACIN ZINC 15 GM TUBE TOPICAL OINTMENT ONE (19:57)
[2022-09-16] MEDS ORDERED: DIPHTH,PERTUSS(ACELL),TET 0.5 ML DISP.SYRIN IM ONE ×2 (20:54→21:06)
== END 2022-09-16 21:08 | disposition home or self-care (01) ==
LOC: JERFT 18:09 → JER 18:09 → JERFT 21:08
PROC: 3E0234Z Introduction of Serum, Toxoid and Vaccine into Muscle, Percutaneous Approach (ICD-10-PCS; principal; 2022-09-16)
DX: S01.80XA Unspecified open wound of other part of head, initial encounter (principal); L08.9 Local infection of the skin and subcutaneous tissue, unspecified; W01.198A Fall on same level from slipping, tripping and stumbling with subsequent striking against other object, initial encounter
CPT/HCPCS: 70450-TC; 70486-TC; 72125-TC; 90471; 90715; 99284-25